=== PATIENT | male | born 1995 | race African-American/Black ===

== ENCOUNTER 2024-09-27 13:20 | Outpatient (AMB) | payer BC, SELFPAY ==
[2024-09-27 13:23] VITALS: BP 122/60; PULSE 56; RESP 18; TEMP 36.3; O2SAT 98; BMI 22.4
--- NOTE | 2024-09-27 13:23 | MHC.PC.OV ---
Vital Signs 09/27/24 13:23 Height 5 ft 5 in Weight 134 lb 8 oz BMI 22.4 BP 122/60 Blood Pressure Location Lt brachial Position Sitting Respiration 18 Pulse 56 Pulse Source Pulse Oximeter Temp 97.3 F Temp Source Temporal Artery Scan Pulse Oximetry (%) 98 Oxygen Delivery Method Room Air Intake Visit Reasons: Biometrics Consultant establish care Ems Educator Required: No Accompanied by: girlfriend Allergies No Known Allergies Allergy (Verified 09/27/24 13:36) Medication List - Last Reconciled 09/27/24 by TEJINDER Hill No Known Home Meds Tobacco use date assessed: 09/27/24 Dental Screening Dental Screen Date: 09/27/24 Did you have a dental visit in the last 12 months?: Yes Did you have a dental problem in the last 6 months where you did not have access to dental care?: No Was dental information given to patient?: Patient has dentist HPI Biometrics Consultant establish care HPI Details Previous PCP: Reports that he has not had a PCP. He migrated from [place] Last visit: n/a Last PE:In about 3 years Specialist:no OBGYN:n/a Past medical history: Asthma as a kid, but has been good since Medications:n/a Family HX: Asthma sister, mother, Problem: NO concerns today [facility] Medical History Asthma Family History (Updated 09/27/24 @ 13:57 by TEJINDER Hill) Mother Asthma Sister Asthma Social History Household Members: Spouse Housing: Apartment Alcohol intake: unknown Comment: occasional Patient Tobacco Use Status: Never used Tobacco e-Cigarette/Vaping Use: Never Used service: No Current occupational status: employed Current occupation: IT Cognitive needs: No Hearing needs: No Vision needs: No Questionnaire PHQ-9 Over the last 2 weeks, how often have you been bothered by any of the following problems? 1. Little interest or pleasure in doing things: not at all 2. Feeling down, depressed, or hopeless: not at all 3. Trouble falling or staying asleep, or sleeping too much: several days 4. Feeling tired or having little energy: several days 5. Poor appetite or overeating: not at all 6. Feeling bad about yourself - or that you are a failure or have let yourself or your family down: not at all 7. Trouble concentrating on things, such as reading the newspaper or watching television: not at all 8. Moving or speaking so slowly that other people could have noticed. Or the opposite - being so fidgety or restless that you have been moving around a lot more than usual: not at all 9. Thoughts that you would be better off or of hurting yourself in some way: not at all Total score: 2 Depression Screening Interpretation: Negative Depression Screening Done: Yes 34937 - PHQ-9 Billing: Yes Source: Developed by Drs. Gabriel Savage, Peace Warner, Shaun Arceo and colleagues, with an educational yohannes from [employer]. Thrive Questionnaire Date Thrive assessed: 09/27/24 I am a: Patient What is your living situation today?: I have a steady place to live Within the past 12 months, did the food you bought not last and you didn't have the money to get more?: Never true Within the past 12 months, did you worry whether your food would run out before you got money to buy more?: Never true Do you have trouble paying for medicines?: No Do you have trouble getting transportation to medical appointments?: No Do you have trouble paying your heating and electricity bill?: No Do you have trouble taking care of your child, family member or friend?: No Do you have trouble with day-to-day activities such as bathing, preparing meals, shopping, managing finances, etc.?: No Are you currently unemployed and looking for a job?: No Are you interested in more education?: No Please select the resources that you would like help with: None Currently or been in a relationship where the following occur: No concerns reported THRIVE Score: 0 AUDIT C Alcohol Use Questionnaire (AUDIT-C) 1. How often do you have a drink containing alcohol?: Never Total Score: 0 ANGELITO-7 AMB Questionnaire ANGELITO-7 Date ANGELITO - 7 assessed: 09/27/24 Feeling nervous, anxious, or on edge: 0 = Not at all Not being able to stop or control worryin = Not at all Worrying too much about different things: 0 = Not at all Trouble relaxin = Not at all Being so restless that it is hard to sit still: 0 = Not at all Becoming easily annoyed or irritable: 0 = Not at all Feeling afraid as if something awful might happen: 0 = Not at all Total ANGELITO-7 score (0-4 normal; 5-9 mild; 10-14 moderate; 15-21 severe): 0 Source: Developed by Drs. Gabriel Savage, Peace Warner, Shaun Arceo and colleagues, with an educational yohannes from [employer]. ANGELITO-7 Assessment Billing ANGELITO-7 Assessment Tool: ANGELITO-7 Assessment 63375 Review of Systems Const Denies headache(s) Eyes Denies loss of vision ENT Denies vertigo, Denies dizziness, Denies headache(s) and Denies sore throat Card Denies chest pain, Denies leg edema and Denies lightheadedness Resp Denies cough, Denies hemoptysis and Denies wheezing GI Denies abdominal pain, Denies melena, Denies constipation, Denies diarrhea and Denies vomiting Denies dysuria, Denies urinary frequency and Denies urinary urgency Musc Denies arthralgias, Denies joint swelling, Denies numbness and Denies tingling Neuro Denies Abnormal speech present, Denies behavioral changes, Denies vertigo, Denies dizziness, Denies headache(s), Denies loss of vision, Denies memory loss, Denies numbness and Denies tingling Psych Denies anxiety, Denies behavioral changes, Denies depression, Denies memory loss and Denies panic attacks Juan C/Lymph Denies easy bleeding and Denies easy bruising Aller/Immun Denies wheezing Physical exam (Primary Care) Vital Signs: Last Vital Signs Temp 97.3 F 09/27/24 13:23 Pulse 56 09/27/24 13:23 Resp 18 09/27/24 13:23 BP 122/60 09/27/24 13:23 Pulse Ox 98 09/27/24 13:23 Oxygen Delivery Method Room Air 09/27/24 13:23 BMI result Body Mass Index 22.4 Tobacco/Smoking Status: Tobacco use Status Tobacco use date assessed 09/27/24 09/27/24 13:30 Patient Tobacco Use Status Never used Tobacco 09/27/24 13:30 e-Cigarette/Vaping Use Never Used 09/27/24 13:30 PHQ-9: PHQ-9 Score PHQ-9: Total score 2 09/27/24 13:30 Depression Screening Interpretation: Negative Thrive Assessment: Date of Thrive Assessment Date Thrive assessed 09/27/24 09/27/24 13:30 Currently or been in a relationship where the following occur: No concerns reported Const General: healthy appearing, no acute distress, alert and awake Nutritional Appearance: well nourished Orientation/consciousness: oriented to person, oriented to place and oriented to time HENMT Ears: TM's normal bilaterally General nose exam: Normal nasal mucous membranes and turbinates present Eyes Conjunctivae: conjunctivae normal Sclerae: sclerae normal Pupils: Equal, round and reactive pupils present Neck Neck: Yes no lymphadenopathy and Yes no JVD Thyroid: Thyroid normal Carotids: no bruits Resp Effort & Inspection: normal respiratory effort and not tachypneic Auscultation: no crackles, no rales, no rhonchi and no wheezes Cardio Rate: regular rate Rhythm: regular rhythm Heart sounds: no murmurs and normal S1 and S2 GI Palpation (GI): Soft to palpation, nontender, no hepatomegaly and no splenomegaly Auscultation: normal bowel sounds Skin General skin exam: no rashes or lesions noted and dry skin Neuro General: oriented to person, oriented to place and oriented to time Cranial nerves: Yes Equal, round and reactive pupils present Speech: No Abnormal speech present Gait exam (Neuro): Normal gait present Motor exam (neuro): no tremor noted Extrem Right upper extremity: full ROM Left upper extremity: full ROM Right lower extremity: full ROM; no edema Left lower extremity: full ROM; no edema Psych Mental Status: mental status grossly normal Speech and movement: Normal speech and movement present Affect: normal affect Attitude: cooperative Thought process: Normal thought process present Coding Level of Care Code New Pt Level 3 (56699) Diagnoses Encounter to establish care with new provider Z76.89 Asthma, unspecified asthma severity, unspecified whether complicated, unspecified whether persistent J45.909 Asthma severity: unspecified severity Asthma persistence: unspecified Asthma complication type: unspecified Additional Codes PHQ-9 - 40016 - PHQ-9 Billing: Yes ([id number]) ANGELITO-7 Assessment Billing - ANGELITO-7 Assessment Tool: ANGELITO-7 Assessment 41194 ([id number]) Time Spent (min) 34 Assessment & Plan Assessment & Plan (1) Encounter to establish care with new provider: Code(s): Z76.89 - Persons encountering health services in other specified circumstances Category: Medical Plan: The patient is presenting to establish care. Reports that he moved him to make it and has not had a primary care doctor. Patient does not have any concerns today. We will order labs and have the patient return for on physical and lab review. (2) Asthma: Code(s): J45.909 - Unspecified asthma, uncomplicated Category: Medical Qualifiers: Asthma severity: unspecified severity Asthma persistence: unspecified Asthma complication type: unspecified Qualified Code(s): J45.909 - Unspecified asthma, uncomplicated Plan: Patient reports childhood asthma that has not been significant for a while. Reports that after moving to the [facility] with the change of the climates, he had use an inhaler as needed, but has since adjusted well. Orders: Orders Complete Blood Count Auto Diff Today Z00.00 - Encounter for general adult medical examination without abnormal findings Comprehensive [place]. Panel Fast Today Z00.00 - Encounter for general adult medical examination without abnormal findings Lipid Panel Today Z00.00 - Encounter for general adult medical examination without abnormal findings UA CC w/rflx Micro + Cult Today Z00.00 - Encounter for general adult medical examination without abnormal findings TSH reflex Free T4 Today Z00.00 - Encounter for general adult medical examination without abnormal findings Vitamin D 25-OH Total Today Z00.00 - Encounter for general adult medical examination without abnormal findings
== END 2024-09-27 13:50 | disposition home or self-care (01) ==
LOC: HO.HMCH 13:21
DX: Z76.89 Persons encountering health services in other specified circumstances (principal); J45.909 Unspecified asthma, uncomplicated

== ENCOUNTER → 2024-09-27 13:20 | Outpatient (BNVA) | payer BC, SELFPAY | DX: J45.909 Unspecified asthma, uncomplicated (principal); Z76.89 Persons encountering health services in other specified circumstances | CPT/HCPCS: 96127 ==

== ENCOUNTER 2024-10-29 08:01 | Outpatient (REF) | payer BC, SELFPAY ==
[2024-10-29 08:30] LABS: MANUAL DIFF FLAG NO
[2024-10-29 08:36] LABS: Hematocrit 40.0 % (42.0-52.0); Hemoglobin 12.9 g/dl (14.0-18.0); Imm Gran Abs Auto 0.01 X10*3/uL (0.00-0.03); Imm Gran Pct Auto 0.3 % (0.0-0.4); Lymphocytes Absolute Auto 1.8 X10*3/uL (1.2-4.9); Mean Corpuscular HGB Conc 32.3 g/dl (31.0-36.0); Mean Corpuscular Hemoglobin 28.1 pg (27.0-33.0); Mean Corpuscular Volume 87.1 fL (80.0-98.0); NRBC Abs Auto 0.000 X10*3/uL (0.0-0.012); NRBC Pct Auto 0.0 /100WBC (0.0-0.2); Platelet Count 181 X10*3/uL (160-400); Red Blood Count 4.59 X10*6/uL (4.60-5.80); White Blood Count 4.0 X10*3/uL (4.8-10.8)
[2024-10-29 09:36] LABS: Alanine Aminotransferase 84 U/L (0-40); Albumin Level 4.5 g/dL (3.5-5.0); Alkaline Phosphatase 48 U/L (39-117); Anion Gap 7 (12-20); Aspartate Amino Transferase 39 U/L (5-37); Blood Urea Nitrogen 11 mg/dL (9-16); Calcium 9.1 mg/dL (8.4-10.2); Carbon Dioxide 29 mmol/L (22-29); Chloride 109 mmol/L (96-108); Cholesterol 213 mg/dL (<200); Estimated Glomerular Filt Rate > 60; HDL Cholesterol 44 mg/dL (>40); Potassium 4.2 mmol/L (3.3-5.1); Sodium 141 mmol/L (135-145); Total Protein 7.0 g/dL (6.5-8.0); Triglycerides 62 mg/dL (<150)
[2024-10-29 09:36] LABS: Appearance Urine Turbid; Glucose Urine UA Negative (Negative); PH 5.5 (5.0-9.0); Specific Gravity - Urine 1.025 (1.005-1.025); UMIC TRIGGER UACC YES
[2024-10-29 09:42] LABS: UACC Culture Trigger YES
== END 2024-10-29 08:02 | disposition home or self-care (01) ==
LOC: HO.LAB 08:01
DX: Z00.00 Encounter for general adult medical examination without abnormal findings (principal); Z13.6 Encounter for screening for cardiovascular disorders
CPT/HCPCS: 36415; 80053; 80061; 81001; 81003; 82306; 84443; 85025; 87086

== ENCOUNTER 2024-11-14 09:56 | Outpatient (AMB) | payer BC, SELFPAY ==
[2024-11-14 10:26] VITALS: BP 120/66; PULSE 60; RESP 18; TEMP 36.3; O2SAT 98; BMI 22.8
--- NOTE | 2024-11-14 10:26 | MHC.PC.OV ---
Vital Signs 11/14/24 10:26 Height 5 ft 5 in Weight 137 lb 4 oz BMI 22.8 BP 120/66 Blood Pressure Location Lt brachial Position Sitting Respiration 18 Pulse 60 Pulse Source Pulse Oximeter Temp 97.3 F Temp Source Temporal Artery Scan Pulse Oximetry (%) 98 Oxygen Delivery Method Room Air Intake Visit Reasons: annual physical/lab review Grounds Supervisor Required: No Accompanied by: Self / Same As Patient Allergies No Known Allergies Allergy (Verified 11/14/24 11:12) Medication List - Last Reconciled 11/14/24 by TEJINDER Hill No Known Home Meds Tobacco use date assessed: 11/14/24 Dental Screening Dental Screen Date: 11/14/24 Did you have a dental visit in the last 12 months?: Yes Did you have a dental problem in the last 6 months where you did not have access to dental care?: No Was dental information given to patient?: Patient has dentist HPI annual physical/lab review HPI Details Dentist: up to date Eye: up to date Snellen: Right: Left: Corrected vision: no STI screening: Colonoscopy: no Pap Smer:n/a PHQ-9:n/a Flu: Reports that he used to take the flu vaccine, but he is not planning to this season, due to being sick frequently last season after taking the flu vaccine. COVID: x3 Tdap:11/2023 Diet:regular Exercise: no The patient is a 28-year-old male presenting with concerns about elevated cholesterol levels, anemia, and elevated liver enzymes. The patient reports a history of hypercholesterolemia, with recent lab results indicating cholesterol levels higher than the desired range. There is no known family history of hypercholesterolemia, and the patient is not overweight, suggesting dietary factors may be contributing. The patient consumes fried foods and red meat, which may be impacting cholesterol levels. The patient has been noted to have anemia, with hemoglobin levels recorded at 11.9 g/dL. The patient denies being vegetarian, which rules out dietary B12 deficiency as a cause. The patient previously took iron supplements due to fatigue but discontinued them after noticing changes in stool color. Elevated liver enzymes were identified, prompting further investigation. The patient reports minimal alcohol consumption, suggesting other factors may be contributing to liver enzyme elevation. An abdominal ultrasound has been ordered to further assess liver health. The patient also presented with hematuria, though no urinary tract infection was detected. A repeat urinalysis has been planned to confirm the presence of blood in the urine. 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 Hearing needs: No Vision needs: No Questionnaire Thrive Questionnaire Date Thrive assessed: 09/27/24 I am a: Patient What is your living situation today?: I have a steady place to live Within the past 12 months, did the food you bought not last and you didn't have the money to get more?: Never true Within the past 12 months, did you worry whether your food would run out before you got money to buy more?: Never true Do you have trouble paying for medicines?: No Do you have trouble getting transportation to medical appointments?: No Do you have trouble paying your heating and electricity bill?: No Do you have trouble taking care of your child, family member or friend?: No Do you have trouble with day-to-day activities such as bathing, preparing meals, shopping, managing finances, etc.?: No Are you currently unemployed and looking for a job?: No Are you interested in more education?: No Please select the resources that you would like help with: None Currently or been in a relationship where the following occur: No concerns reported THRIVE Score: 0 ANGELITO-7 AMB Questionnaire ANGELITO-7 Date ANGELITO - 7 assessed: 09/27/24 Source: Developed by Drs. Gabriel Savage, Peace Warner, Shaun Arceo and colleagues, with an educational yohannes from [employer]. Physical exam (Primary Care) Vital Signs: Last Vital Signs Temp 97.3 F 11/14/24 10:26 Pulse 60 11/14/24 10:26 Resp 18 11/14/24 10:26 BP 120/66 11/14/24 10:26 Pulse Ox 98 11/14/24 10:26 Oxygen Delivery Method Room Air 11/14/24 10:26 BMI result Body Mass Index 22.8 Tobacco/Smoking Status: Tobacco use Status Tobacco use date assessed 11/14/24 11/14/24 10:32 Patient Tobacco Use Status Never used Tobacco 11/14/24 10:32 e-Cigarette/Vaping Use Never Used 11/14/24 10:32 Thrive Assessment: Date of Thrive Assessment Date Thrive assessed 09/27/24 11/14/24 10:32 Currently or been in a relationship where the following occur: No concerns reported Results Reviewed Results Reviewed: Laboratory Tests 10/29/24 10/29/24 08:23 08:28 WBC 4.0 L RBC 4.59 L Hgb 12.9 L Hct 40.0 L MCV 87.1 MCH 28.1 MCHC 32.3 RDW 13.2 Plt Count 181 MPV 10.5 Sodium 141 Potassium 4.2 Chloride 109 H Carbon Dioxide 29 Anion Gap 7 L BUN 11 Creatinine 1.10 Estimated GFR > 60 Fasting Glucose 99 Calcium 9.1 Total Bilirubin 0.5 AST 39 H ALT 84 H Alkaline Phosphatase 48 Total Protein 7.0 Albumin 4.5 Triglycerides 62 Cholesterol 213 H LDL Cholesterol, Calc 157 H HDL Cholesterol 44 25-OH Vitamin D Total 42.8 TSH 0.59 Urine Color Yellow Urine Appearance Turbid Urine pH 5.5 Ur Specific [place] 1.025 Urine Protein Negative Urine Glucose (UA) Negative Urine Ketones Negative Urine Blood Moderate (2+) H Urine Nitrite Negative Ur Leukocyte Esterase Small (1+) H Urine RBC 11-20 H Urine WBC 11-20 H Ur Squamous Epith Cells 0-2 Urine Bacteria None Seen Hyaline Casts 0-2 Coding Level of Care Code Est Pt Prev Care 18-39y([id number]) Diagnoses Annual physical exam Z00.00 Asthma, unspecified asthma severity, unspecified whether complicated, unspecified whether persistent J45.909 Asthma severity: unspecified severity Asthma persistence: unspecified Asthma complication type: unspecified Pure hypercholesterolemia E78.00 Hyperlipidemia type: pure hypercholesterolemia Elevated liver enzymes R74.8 Hematuria, unspecified type R31.9 Hematuria type: unspecified type Time Spent (min) 37 Assessment & Plan Assessment & Plan (1) Annual physical exam: Code(s): Z00.00 - Encounter for general adult medical examination without abnormal findings Category: Medical Plan: Preventative guidelines and recent labs reviewed with the patient. (2) Asthma: Code(s): J45.909 - Unspecified asthma, uncomplicated Category: Medical Qualifiers: Asthma severity: unspecified severity Asthma persistence: unspecified Asthma complication type: unspecified Qualified Code(s): J45.909 - Unspecified asthma, uncomplicated Plan: Patient reports childhood asthma that has not been significant for a while. [place], he had use an inhaler as needed, but has since adjusted well. (3) HLD (hyperlipidemia): Code(s): E78.5 - Hyperlipidemia, unspecified Category: Medical Qualifiers: Hyperlipidemia type: pure hypercholesterolemia Qualified Code(s): E78.00 - Pure hypercholesterolemia, unspecified Plan: Triglycerides 62, total cholesterol 213, LDL 157, HDL 44 The patient has been advised to modify his diet to reduce cholesterol intake, focusing on reducing fried foods and red meat consumption. A follow-up is planned in three months to reassess cholesterol levels and evaluate the effectiveness of dietary changes. (4) Elevated liver enzymes: Code(s): R74.8 - Abnormal levels of other serum enzymes Category: Medical Plan: AST 39, ALT 84 Elevated liver enzymes have been noted, and an abdominal ultrasound has been ordered to further investigate liver health. The patient reports minimal alcohol consumption, suggesting other factors may be contributing. (5) Hematuria: Code(s): R31.9 - Hematuria, unspecified Category: Medical Qualifiers: Hematuria type: unspecified type Qualified Code(s): R31.9 - Hematuria, unspecified Plan: The patient presented with hematuria, though no urinary tract infection was detected. A repeat urinalysis has been planned to confirm the presence of blood in the urine. Orders: Orders Hepatitis A,B,C Profile 11/14/24 R74.8 - Abnormal levels of other serum enzymes IRON PROFILE 11/14/24 R74.8 - Abnormal levels of other serum enzymes Liver Panel 11/14/24 R74.8 - Abnormal levels of other serum enzymes Complete Blood Count Auto Diff 3 Months E78.5 - Hyperlipidemia, unspecified, J45.909 - Unspecified asthma, uncomplicated, R74.8 - Abnormal levels of other serum enzymes Comprehensive [place]. Panel Fast 3 Months E78.5 - Hyperlipidemia, unspecified, J45.909 - Unspecified asthma, uncomplicated, R74.8 - Abnormal levels of other serum enzymes Lipid Panel 3 Months E78.5 - Hyperlipidemia, unspecified, J45.909 - Unspecified asthma, uncomplicated, R74.8 - Abnormal levels of other serum enzymes UA CC w/rflx Micro + Cult 3 Months E78.5 - Hyperlipidemia, unspecified, J45.909 - Unspecified asthma, uncomplicated, R74.8 - Abnormal levels of other serum enzymes Urine Cytology 11/14/24 R31.9 - Hematuria, unspecified Ceruloplasmin 11/14/24 R74.8 - Abnormal levels of other serum enzymes US abdomen limited 11/14/24 R74.8 - Abnormal levels of other serum enzymes UA CC w/rflx Micro + Cult 11/14/24 R31.9 - Hematuria, unspecified
== END 2024-11-14 11:47 | disposition home or self-care (01) ==
LOC: HO.HMCH 09:57
DX: Z00.00 Encounter for general adult medical examination without abnormal findings (principal); J45.909 Unspecified asthma, uncomplicated; E78.00 Pure hypercholesterolemia, unspecified; R74.8 Abnormal levels of other serum enzymes; R31.9 Hematuria, unspecified

== ENCOUNTER 2024-11-14 09:56 | Outpatient (REF) | payer BC, SELFPAY ==
[2024-11-14 13:50] LABS: Appearance Urine Clear; Glucose Urine UA Negative (Negative); PH 6.5 (5.0-9.0); Specific Gravity - Urine 1.020 (1.005-1.025); UMIC TRIGGER UACC YES
[2024-11-14 14:35] LABS: Alanine Aminotransferase 83 U/L (0-40); Albumin Level 4.8 g/dL (3.5-5.0); Alkaline Phosphatase 50 U/L (39-117); Aspartate Amino Transferase 44 U/L (5-37); Iron 139 mcg/dL (45-160); Percent Iron Saturation 43 % (15-50); Total Iron Binding Capacity 323 mcg/dL (228-428); Total Protein 7.3 g/dL (6.5-8.0); Unsaturated Iron Binding 184 ug/dL
[2024-11-15 08:03] LABS: HBS Num1 > 1000.00 mIU/mL (0-7.99); HBc Num1 0.03 S/CO (0.00-0.79); HBsAGNum1 0.35 S/CO (0.00-0.99); Hepatitis A Antibody IgM 0.22 Index (0-0.79); Hepatitis B Surface Antigen Negative (Negative); ~HepC Num1 0.05 S/CO (0.00-0.79); ~Hepatitis A Antibody IgM Nonreactive (Nonreactive); ~Hepatitis B Surface Antibody REACTIVE (Nonreactive); ~Hepatitis C Antibody Nonreactive (Nonreactive)
== END 2024-11-14 09:57 | disposition home or self-care (01) ==
LOC: HO.LAB 09:56
DX: Z00.00 Encounter for general adult medical examination without abnormal findings (principal); E78.00 Pure hypercholesterolemia, unspecified; R74.8 Abnormal levels of other serum enzymes; R31.9 Hematuria, unspecified; J45.909 Unspecified asthma, uncomplicated
CPT/HCPCS: 36415; 80076; 81001; 82390; 83540; 86704; 86706; 86709; 86803; 87340; 88112

== ENCOUNTER 2024-12-06 14:32 | Outpatient (REF) | payer BC, SELFPAY ==
--- NOTE | ~2024-12-06 | US_ITS ---
EXAMINATION: US ABDOMEN LIMITED CLINICAL INFORMATION: Abnormal liver function tests. COMPARISON: None TECHNIQUE: Real-time imaging of the right upper quadrant abdominal viscera. FINDINGS: PANCREAS: Visualized portions of the head and body are unremarkable. Tail not well visualized due to bowel gas. LIVER: The liver is normal in size. The liver contour is normal. Parenchymal echogenicity is normal. No focal hepatic lesion. There is no intrahepatic biliary duct dilatation seen. GALLBLADDER: The gallbladder is physiologically distended without evidence of stones, sludge, polyps, wall thickening or pericholecystic fluid. Negative sonographic Hankins's sign. COMMON BILE DUCT: Normal in caliber measuring 0.3 cm in diameter. RIGHT KIDNEY: Small echogenic foci throughout the right kidney without clinical artifact or acoustic shadowing, largest measuring 2 x 2 x 3 mm. These probably represent vascular reflectors. Difficult to exclude a small stone. No hydronephrosis. No focal parenchymal lesions. The kidney measures 9.6 cm in maximum dimension. FREE FLUID: None. US/US abdomen limited IMPRESSION: Normal-appearing liver, bile ducts and gallbladder. Small echogenic foci in the right kidney, question vascular reflectors. Difficult to exclude a small stone. Electronically signed by: Mone Hernández MD 12/06/2024 04:08 PM EDT
== END 2024-12-06 14:33 | disposition home or self-care (01) ==
LOC: HO.US 14:32
DX: R74.8 Abnormal levels of other serum enzymes (principal)
CPT/HCPCS: 76705